=== PATIENT | male | born 1950 | race Two or more races ===

== ENCOUNTER 2024-09-12 11:15 | Outpatient (AMB) | payer OTHER, MEDICAID, SELFPAY ==
--- NOTE | 2024-09-12 11:30 | PD.ORTHCLVIS ---
Vital signs 09/12/24 11:38 Height 1.88 m Height Method Measured Weight 181.068 kg Weight Measurement Method Standing Scale BMI 51.2 BP 191/95 H Blood Pressure Source Automatic Cuff Blood Pressure Location Right Upper Arm Position Sitting Respiration 18 Pulse 78 Pulse Source Monitor Temp 98.1 F Temp Source Temporal Artery Scan Pulse Oximetry (%) 93 L Oxygen Delivery Method Room Air Med/Allergies Allergies & Medications Allergies No Known Allergies Allergy (Verified 09/12/24 11:39) Medication Reconciliation amlodipine 10 mg tablet 10 mg PO QDAY 10/30/21 [History Confirmed 09/12/24] doxycycline hyclate 100 mg capsule 100 mg PO QDAY 10/30/21 [History Confirmed 09/12/24] hydrochlorothiazide 25 mg tablet 25 mg PO QDAY 10/30/21 [History Confirmed 09/12/24] lisinopril 20 mg tablet 20 mg PO QDAY 10/30/21 [History Confirmed 09/12/24] Exam Exam Patient is in no acute distress and is cooperative with the examination today. Breathing is nonlabored. In no respiratory distress. Bilateral extremities were evaluated and demonstrates sensation intact to light touch. Palpable pedal pulses are present. No significant edema is present. Bilateral hips were examined. The patient has no pain with log roll of the hips. Internal rotation to 30 degrees and external rotation to 30 degrees is painless. Negative FADIR. The left knee was examined. The left knee is in varus alignment. Range of motion from 0-115 degrees. Knee is stable to varus and valgus as well as AP translation with <5mm. Patient has a negative McMurrays. There is no pain with patellofemoral compression and no crepitus noted. The knee is tender to palpation medially. The right knee was also examined. The right knee is in varus alignment. Range of motion from 0-120 degrees. Knee is stable to varus and valgus as well as AP translation with <5mm. Patient has a negative McMurrays. There is no pain with patellofemoral compression and no crepitus noted. The knee is tender to palpation medially R knee xrays demonstrate nonweight bearing xrays and demonstrates r knee osteoarthritis Assessment and Plan Problem List (1) History of total left knee replacement: Status: Acute Plan: Patient has significant r knee oa. We will get weight bearing xrays as I suspect he has significant osteoarthiritis. We will likely do conservative treatment as he is not a candidate for a total knee replacement We discussed weight loss in great detail Advanced Care Planning Discussion Advance care planning discussed with:: other Office Procedures GNS Level of Care Nursing/Assessment Patient Status: Initial/New Patient Nursing Assessment/Reassesment: Medication Reconciliation, Update PMH in EMR and Vital Signs Coordination of Care: Complex Care and Chronic Disease 1-5, Education Complex Pt/Fam, Consent,records obtained, informed consent, Lab and Imaging orders, Results/Orders obtained and Staff clarify orders New Patient Charge New Patient Point Assignment: 1100 New Patient Point Charge: [employer] Level 3 ([id number]) MA Intake Visit Data Collection New Patient or Established: New Patient (never been to [facility]) Reason for Visit:: RIGHT KNEE PAIN Seen by Clinical Staff ONLY (RN/MA): No Explosives Detonator Required: No PCP or OBGYN visit in last 3 months: Yes Hx Now: No Do You Feel Safe at Home: Yes Authorities Contacted: N/A Questionairres Past Medical History Past Medical History Have you ever been diagnosed with any of the following: Cardiology Problems Congestive Heart Failure: Yes Hypertension: Yes Subjective Visit Visit for: new patient and knee Immunization / Flu Flu Vaccine in the Last 12 Months: No Flu Vaccine Exclusion Criteria: No Exclusion Criteria History of Present Illness Chief complaint: RIGHT KNEE PAIN Date of injury / onset of symptoms: 3 YEARS Patient is a 73yo male with bilateral knee pain. He has not had significant treatment. He has tried aspirin quite has not had any injections. His BMI is 51. He reports the right knee pain has been ongoing for a while. Personal History Occupation: [employer] Red flag PMH: none BMI Counceling provided: Yes Pain Pain level (0-10): 7 Pain location: anterior Pain quality: dull Pain timing: night Associated signs & symptoms: stiffness Ambulatory data Ambulatory device: none Treatments Improvement with previous injections: No Improvement with PT: No Improvement with NSAIDS: yes Review of Systems Review of Systems: All systems negative unless otherwise noted in HPI.
[2024-09-12 11:38] VITALS: BP 191/95; PULSE 78; RESP 18; TEMP 36.7; O2SAT 93; BMI 51.2
--- NOTE | 2024-09-12 11:52 | XR_ITS ---
Examination: Knee bilateral, 8 views Technique: Knee AP, lateral, oblique, axial H knee total 8 views Date and time of exam: September 12, 2024 11:59 AM INDICATIONS: Patient fell 3 years ago with injury to both knees, bilateral knee pain. FINDINGS: Advanced narrowing medial joint space left knee Advanced osteoarthritis left patellofemoral joint Advanced narrowing medial joint space right knee Advanced osteoarthritis right patellofemoral joint No fractures or patellar dislocations IMPRESSION: Bilateral advanced narrowing medial joint spaces Bilateral advanced osteoarthritis patellofemoral joints
== END 2024-09-12 11:54 | disposition home or self-care (01) ==
LOC: HODSRG 11:15
PROVIDERS: PCP Family Medicine; Referring Provider Family Medicine; Supervising Provider Orthopaedic Surgery Adult Reconstructive Orthopaedic Surgery; Visit Provider Orthopaedic Surgery Adult Reconstructive Orthopaedic Surgery
DX: Z96.652 Presence of left artificial knee joint (principal); M17.11 Unilateral primary osteoarthritis, right knee; I11.0 Hypertensive heart disease with heart failure; I50.9 Heart failure, unspecified
CPT/HCPCS: 73564; 99203; G0463

== ENCOUNTER 2024-09-26 09:46 | Outpatient (AMB) | payer OTHER, MEDICAID, SELFPAY ==
--- NOTE | 2024-09-26 09:51 | PD.ORTHCLVIS ---
Vital signs 09/26/24 10:05 Height 1.88 m Height Method Measured Weight 187.532 kg Weight Measurement Method Standing Scale BMI 53.0 BP 203/82 H Blood Pressure Source Automatic Cuff Blood Pressure Location Left Upper Arm Position Sitting Respiration 19 Pulse 73 Pulse Source Monitor Temp 97.8 F Temp Source Temporal Artery Scan Pulse Oximetry (%) 93 L Oxygen Delivery Method Room Air Med/Allergies Allergies & Medications Allergies No Known Allergies Allergy (Verified 09/26/24 10:06) Medication Reconciliation amlodipine 10 mg tablet 10 mg PO QDAY 10/30/21 [History Confirmed 09/26/24] doxycycline hyclate 100 mg capsule 100 mg PO QDAY 10/30/21 [History Confirmed 09/26/24] hydrochlorothiazide 25 mg tablet 25 mg PO QDAY 10/30/21 [History Confirmed 09/26/24] lisinopril 20 mg tablet 20 mg PO QDAY 10/30/21 [History Confirmed 09/26/24] Exam Exam Patient is in no acute distress and is cooperative with the examination today. Breathing is nonlabored. In no respiratory distress. Bilateral extremities were evaluated and demonstrates sensation intact to light touch. Palpable pedal pulses are present. No significant edema is present. Bilateral hips were examined. The patient has no pain with log roll of the hips. Internal rotation to 30 degrees and external rotation to 30 degrees is painless. Negative FADIR. The left knee was examined. The left knee is in varus alignment. Range of motion from 0-115 degrees. Knee is stable to varus and valgus as well as AP translation with <5mm. Patient has a negative McMurrays. There is no pain with patellofemoral compression and no crepitus noted. The knee is tender to palpation medially. The right knee was also examined. The right knee is in varus alignment. Range of motion from 0-120 degrees. Knee is stable to varus and valgus as well as AP translation with <5mm. Patient has a negative McMurrays. There is no pain with patellofemoral compression and no crepitus noted. The knee is tender to palpation medially R knee xrays demonstrate nonweight bearing xrays and demonstrates r knee osteoarthritis Assessment and Plan Problem List (1) History of total left knee replacement: Status: Acute Plan: Patient has significant r knee oa. We will get weight bearing xrays as I suspect he has significant osteoarthiritis. We will likely do conservative treatment as he is not a candidate for a total knee replacement We discussed weight loss in great detail. For his height, his goal weight is 310 according to surgery. Recommend knee cortisone injection as patient would like to proceed with conservative treatment at this time. The risks and benefits of the procedure were reviewed with the patient and patient gave verbal consent to continue with the procedure. Procedure: performed by Dr. Jeffery Using sterile technique the Right knee was thoroughly prepped with alcohol, and approximately 1 cc of Depo-Medrol 80mg/mL and 4 cc of 0.2% ropivacaine was injected without resistance into the medial tibial femoral joint space. The patient tolerated the procedure. Recommend knee cortisone injection as patient would like to proceed with conservative treatment at this time. The risks and benefits of the procedure were reviewed with the patient and patient gave verbal consent to continue with the procedure. Procedure: performed by Dr. Jeffery Using sterile technique the left knee was thoroughly prepped with alcohol, and approximately 1 cc of Depo-Medrol 80mg/mL and 4 cc of 0.2% ropivacaine was injected without resistance into the medial tibial femoral joint space. The patient tolerated the procedure. Advanced Care Planning Discussion Advance care planning discussed with:: other Office Procedures GNS Level of Care Nursing/Assessment Patient Status: Established Patient Nursing Assessment/Reassesment: Medication Reconciliation, Update PMH in EMR and Vital Signs Coordination of Care: Complex Care and Chronic Disease 1-5, Education Complex Pt/Fam, Consent,records obtained, informed consent, Results/Orders obtained and Staff clarify orders Established Patient Charge Established Patient Point Assignment: 95 Established Patient Point Charge: EP Level 3 (80-115) Surgical Proc/IM SQ injection Major Surgical Procedure: Yes (BILATERAL KNEE INJECTION) Medication Given Medication Given Medication Given: Yes Documented Dose Given: 1 Route: Infiitration Medication Given Medication Given Medication Given: Yes Documented Dose Given: 1 Route: Infiitration Medication Given Medication Given Medication Given: Yes Documented Dose Given: 4 Route: Infiitration Medication Given Medication Given Medication Given: Yes Documented Dose Given: 4 Route: Infiitration Office Meds methylprednisolone acetate 80 mg/mL suspension for injection Performing Provider: Daniele Jeffery MD Performing Location: [facility] Administered by: Daniele Jeffery MD on 09/26/24 11:19 Dose Route Admin Location Dispensed Lot Number Expiration Date [employer] Nursing Staffing Coordinator 80 mg intra-articular 1 mL [id number] 07/21/26 [address]-6 [employer] methylprednisolone acetate 80 mg/mL suspension for injection Performing Provider: Daniele Jeffery MD Performing Location: [facility] Administered by: Daniele Jeffery MD on 09/26/24 11:19 Dose Route Admin Location Dispensed Lot Number Expiration Date [facility] Nursing Staffing Coordinator 80 mg intra-articular 1 mL [id number] 07/21/26 [address]-1 [employer] ropivacaine (PF) 2 mg/mL (0.2 %) injection solution Performing Provider: Daniele Jeffery MD Performing Location: [facility] Administered by: Daniele Jeffery MD on 09/26/24 11:19 Dose Route Admin Location Dispensed Lot Number Expiration Date [facility] Nursing Staffing Coordinator 20 mL Infiltration 20 mL [id number] 12/21/25 89847-521-58 [facility] ropivacaine (PF) 2 mg/mL (0.2 %) injection solution Performing Provider: Daniele Jeffery MD Performing Location: [facility] Administered by: Daniele Jeffery MD on 09/26/24 11:19 Dose Route Admin Location Dispensed Lot Number Expiration Date [facility] Nursing Staffing Coordinator 20 mL Infiltration 20 mL [id number] 12/21/25 30213-505-93 [facility] [place] Intake Visit Data Collection New Patient or Established: Established Patient (seen at [facility] within 3 years) Reason for Visit:: RIGHT KNEE PAIN Seen by Clinical Staff ONLY (RN/MA): No Supercharge Repair Supervisor Required: No PCP or OBGYN visit in last 3 months: Yes Hx Now: No Do You Feel Safe at Home: Yes Authorities Contacted: N/A Questionairres Past Medical History Past Medical History Have you ever been diagnosed with any of the following: Neurological Problems Cerebrovascular Accident (CVA): No Transient Ischemic Attacks (TIA): No Dementia: No Alzheimer's Disease: No Parkinson's Disease: No Brain Tumor: No Meningitis: No Seizures: No Epilepsy: No Multiple Sclerosis: No Cerebral Palsy: No Amyotrophic Lateral Sclerosis (ALS/Yanet Gehrig's): No Guillain-[place] Syndrome: No Spina Bifida: No Paralysis: No Peripheral Neuropathy: No Olmstead's Palsy: No Subdural Hematoma: No Migraine: No Head Trauma: No Spinal Cord Injury: No Traumatic Brain Injury: No Cardiology Problems Myocardial Infarction: No Cardiac Arrhythmia: No Atrial Fibrillation: No Angina: No Heart Murmur: No Coronary Artery Disease: No Atherosclerotic Heart Disease: No Peripheral Vascular Disease: No Hypercholesterolemia: No Aneurysm: No Congestive Heart Failure: Yes Congenital Heart Disease: No Valvular Heart Disease: No Rheumatic Fever: No Cardiomyopathy: No Edema: No Pericarditis: No Cellulitis: No Deep Vein Thrombosis: No Hypertension: Yes Hypotension: No Varicose Veins: No Respiratory Problems Chronic Obstructive Pulmonary Disease (COPD): No Asthma: No Bronchitis: No Emphysema: No Pneumonia: No Pulmonary Fibrosis: No Tuberculosis: No Pulmonary Embolism: No Pulmonary Edema: No Sleep Apnea: No CPAP Dependent: No Respiratory Aspiration: No Dyspnea: No Orthopnea: No Hx Cough: No Cough: No Wheezing: No Chest Deformities: No Smoking: No Smoking Cessation Counseling: No Smoking Exposure: No Tobacco Use: No Clubbing: No Exposure to Respiratory Irritants: No Intubation: No Stomache/Intestinal Problems Liver Cancer: No Hepatitis: No Cirrhosis: No Subjective Visit Visit for: follow up visit and knee Immunization / Flu Flu Vaccine in the Last 12 Months: No Flu Vaccine Exclusion Criteria: No Exclusion Criteria History of Present Illness Chief complaint: RIGHT KNEE PAIN Date of injury / onset of symptoms: 3 YEARS Patient is a 73yo male with bilateral knee pain. He has not had significant treatment. He has tried aspirin quite has not had any injections. His BMI is 51. He reports the right knee pain has been ongoing for a while. His BMI is currently 53 Personal History Occupation: [employer] PMH: none BMI Counceling provided: Yes Pain Pain level (0-10): 7 Pain location: anterior Pain quality: dull Pain timing: night Associated signs & symptoms: stiffness Ambulatory data Ambulatory device: none Treatments Improvement with previous injections: No Improvement with PT: No Improvement with NSAIDS: yes Review of Systems Review of Systems: All systems negative unless otherwise noted in HPI.
[2024-09-26 10:05] VITALS: BP 203/82; PULSE 73; RESP 19; TEMP 36.6; O2SAT 93; BMI 53.0
== END 2024-09-26 10:45 | disposition home or self-care (01) ==
PROVIDERS: PCP Family Medicine; Referring Provider Family Medicine; Supervising Provider Orthopaedic Surgery Adult Reconstructive Orthopaedic Surgery; Visit Provider Orthopaedic Surgery Adult Reconstructive Orthopaedic Surgery
DX: M17.11 Unilateral primary osteoarthritis, right knee (principal); M25.562 Pain in left knee; M25.561 Pain in right knee; Z96.652 Presence of left artificial knee joint; I11.0 Hypertensive heart disease with heart failure; I50.9 Heart failure, unspecified
CPT/HCPCS: 20610; 99213; J1010; J2795; G0463

== ENCOUNTER → 2024-11-30 | Outpatient (CLI) | payer OTHER, MEDICAID, SELFPAY ==
--- NOTE | 2024-11-30 14:45 | XR_ITS ---
Exam: MRI knee without contrast, right complete Date and time of exam: November 30, 2024, 1559 hours INDICATIONS: Injury to the knee 3 years ago followed by weakness instability and pain Technique: Multiple axial, coronal, and sagittal sections on the knee have been obtained. T2-Weighted sagittal, fat-suppressed images, TR 3,500, TE 62, T2 weighted coronal fat-saturated images, TR 3,500, TE 62 Proton density sagittal sections, TR 1800, TE 31. T-1 weighted coronal images, TR 524, TE 13.0 Findings: Medial meniscus anterior horn truncation anterior margin Medial meniscus, body replaced by isointense signal and excluded from the joint space. Posterior horn medial meniscus replaced by isointense signal. Lateral meniscus anterior horn truncation intermargin Lateral meniscus, body is intact Posterior horn lateral meniscus is intact Anterior cruciate ligament mildly attenuated Posterior cruciate ligament appears intact. Knee effusion is moderate. Quadriceps and patellar tendons appear intact. There is no evidence of tendinosis. Inflammatory change or fracture of Hoffa's fat pad is not seen. Medial patellar facet demonstrates moderate thinning. Lateral patellar facet cartilage demonstrates moderate thinning. Trochlear cartilage demonstrates moderate thinning. Marrow signal increased about the medial joint space. Medial collateral ligament appears intact. No meniscocapsular separation is seen. Illiotibial band and fibular collateral ligament are intact. Biceps femoris tendons appear intact. Medial femoral condylar articular cartilage demonstrates severe thinning. Lateral femoral condylar articular cartilage demonstrates severe thinning. Tibial plateau cartilage demonstrates severe thinning. Impression: Extensive medial meniscus tears Mild attenuation anterior cruciate ligament Severe narrowing cartilage medial and lateral joint spaces
== END | disposition home or self-care (01) ==
LOC: SMRI 13:27
PROVIDERS: PCP Family Medicine; Referring Provider Orthopaedic Surgery; Visit Provider Orthopaedic Surgery
DX: S83.241A Other tear of medial meniscus, current injury, right knee, initial encounter (principal); S89.91XA Unspecified injury of right lower leg, initial encounter; X58.XXXA Exposure to other specified factors, initial encounter; M25.861 Other specified joint disorders, right knee
CPT/HCPCS: 73721

== ENCOUNTER 2024-12-28 10:38 | Outpatient (AMB) | payer OTHER, MEDICAID, SELFPAY ==
[2024-12-28 11:06] VITALS: BP 169/80; PULSE 69; RESP 20; TEMP 36.7; O2SAT 96; BMI 50.5
--- NOTE | 2024-12-28 11:06 | ORTHONT_ITS ---
Vital signs 12/28/24 11:06 Height 1.88 m Height Method Stated Weight 178.829 kg Weight Measurement Method Standing Scale BMI 50.5 BP 169/80 H Blood Pressure Source Automatic Cuff Blood Pressure Location Left Upper Arm Position Sitting Respiration 20 Pulse 69 Pulse Source Monitor Temp 98.0 F Temp Source Temporal Artery Scan Pulse Oximetry (%) 96 Oxygen Delivery Method Room Air Med/Allergies Allergies & Medications Allergies No Known Allergies Allergy (Verified 12/28/24 11:07) Medication Reconciliation amlodipine 10 mg tablet 10 mg PO QDAY 10/30/21 [History Confirmed 12/28/24] doxycycline hyclate 100 mg capsule 100 mg PO QDAY 10/30/21 [History Confirmed 12/28/24] hydrochlorothiazide 25 mg tablet 25 mg PO QDAY 10/30/21 [History Confirmed 12/28/24] lisinopril 20 mg tablet 20 mg PO QDAY 10/30/21 [History Confirmed 12/28/24] Exam Exam Patient is in no acute distress and is cooperative with the examination today. Breathing is nonlabored. In no respiratory distress. Bilateral extremities were evaluated and demonstrates sensation intact to light touch. Palpable pedal pulses are present. No significant edema is present. Bilateral hips were examined. The patient has no pain with log roll of the hips. Internal rotation to 30 degrees and external rotation to 30 degrees is painless. Negative FADIR. The left knee was examined. The left knee is in varus alignment. Range of motion from 0-115 degrees. Knee is stable to varus and valgus as well as AP translation with <5mm. Patient has a negative McMurrays. There is no pain with patellofemoral compression and no crepitus noted. The knee is tender to palpation medially. The right knee was also examined. The right knee is in varus alignment. Range of motion from 0-120 degrees. Knee is stable to varus and valgus as well as AP translation with <5mm. Patient has a negative McMurrays. There is no pain with patellofemoral compression and no crepitus noted. The knee is tender to palpation medially R knee xrays demonstrate nonweight bearing xrays and demonstrates r knee osteoarthritis Assessment and Plan Problem List (1) History of total left knee replacement: Status: Acute Plan: Patient has significant r knee oa. We will get weight bearing xrays as I suspect he has significant osteoarthiritis. We will likely do conservative treatment as he is not a candidate for a total knee replacement We discussed weight loss in great detail. For his height, his goal weight is 310 according to surgery. he reports he is doing well conservative treatment Advanced Care Planning Discussion Advance care planning discussed with:: other Office Procedures GNS Level of Care Nursing/Assessment Patient Status: Established Patient Nursing Assessment/Reassesment: Medication Reconciliation, Update PMH in EMR and Vital Signs Coordination of Care: Complex Care and Chronic Disease 1-5, Education Complex Pt/Fam, Consent,records obtained, informed consent, Results/Orders obtained and Staff clarify orders Established Patient Charge Established Patient Point Assignment: 95 Established Patient Point Charge: EP Level 3 (80-115) MA Intake Visit Data Collection New Patient or Established: Established Patient (seen at [facility] within 3 years) Reason for Visit:: KNEE PAIN/LALA RESULTS/WEIGHTLOSS FU Seen by Clinical Staff ONLY (RN/MA): No Prep Room Supervisor Required: No PCP or OBGYN visit in last 3 months: Yes Hx Now: No Do You Feel Safe at Home: Yes Authorities Contacted: N/A Questionairres Past Medical History Past Medical History Have you ever been diagnosed with any of the following: Neurological Problems Cerebrovascular Accident (CVA): No Transient Ischemic Attacks (TIA): No Dementia: No Alzheimer's Disease: No Parkinson's Disease: No Brain Tumor: No Meningitis: No Seizures: No Epilepsy: No Multiple Sclerosis: No Cerebral Palsy: No Amyotrophic Lateral Sclerosis (ALS/Yanet Gehrig's): No Guillain-[place] Syndrome: No Spina Bifida: No Paralysis: No Peripheral Neuropathy: No Olmstead's Palsy: No Subdural Hematoma: No Migraine: No Head Trauma: No Spinal Cord Injury: No Traumatic Brain Injury: No Cardiology Problems Myocardial Infarction: No Cardiac Arrhythmia: No Atrial Fibrillation: No Angina: No Heart Murmur: No Coronary Artery Disease: No Atherosclerotic Heart Disease: No Peripheral Vascular Disease: No Hypercholesterolemia: No Aneurysm: No Congestive Heart Failure: Yes Congenital Heart Disease: No Valvular Heart Disease: No Rheumatic Fever: No Cardiomyopathy: No Edema: No Pericarditis: No Cellulitis: No Deep Vein Thrombosis: No Hypertension: Yes Hypotension: No Varicose Veins: No Respiratory Problems Chronic Obstructive Pulmonary Disease (COPD): No Asthma: No Bronchitis: No Emphysema: No Pneumonia: No Pulmonary Fibrosis: No Tuberculosis: No Pulmonary Embolism: No Pulmonary Edema: No Sleep Apnea: No CPAP Dependent: No Respiratory Aspiration: No Dyspnea: No Orthopnea: No Hx Cough: No Cough: No Wheezing: No Chest Deformities: No Smoking: No Smoking Cessation Counseling: No Smoking Exposure: No Tobacco Use: No Clubbing: No Exposure to Respiratory Irritants: No Intubation: No Stomache/Intestinal Problems Liver Cancer: No Hepatitis: No Cirrhosis: No Subjective Visit Visit for: follow up visit, knee and MRI (RESULTS) Immunization / Flu Flu Vaccine in the Last 12 Months: No Flu Vaccine Exclusion Criteria: No Exclusion Criteria History of Present Illness Chief complaint: RIGHT KNEE PAIN Date of injury / onset of symptoms: 3 YEARS Patient is a 73yo male with bilateral knee pain. He has not had significant treatment. He has tried aspirin quite has not had any injections. His BMI is 50.5. He reports the right knee pain has been ongoing for a while. He has lost approximately 18 pounds since we last saw him Personal History Occupation: [employer] Red flag PMH: none BMI Counceling provided: Yes Pain Pain level (0-10): 7 Pain location: anterior Pain quality: dull Pain timing: night Associated signs & symptoms: stiffness Ambulatory data Ambulatory device: none Treatments Improvement with previous injections: No Improvement with PT: No Improvement with NSAIDS: yes Review of Systems Review of Systems: All systems negative unless otherwise noted in HPI.
== END 2024-12-28 11:24 | disposition home or self-care (01) ==
PROVIDERS: PCP Family Medicine; Referring Provider Family Medicine; Supervising Provider Orthopaedic Surgery Adult Reconstructive Orthopaedic Surgery; Visit Provider Orthopaedic Surgery Adult Reconstructive Orthopaedic Surgery
DX: M25.562 Pain in left knee (principal); M25.561 Pain in right knee; Z96.652 Presence of left artificial knee joint; I11.0 Hypertensive heart disease with heart failure; I50.9 Heart failure, unspecified
CPT/HCPCS: 99213; G0463